=== PATIENT | male | born 1955 | race Caucasian/White ===

== ENCOUNTER 2023-01-05 15:45 | Emergency (ER) | payer MEDICARE ==
[~2023-01-05] VITALS: Ht 177.8 cm; Wt 77.1 kg
[~2023-01-05 15:45] MED LIST: CEPH500 PO; Percocet 5-3251 EACH PO
[2023-01-05] MEDS ORDERED: SULTRIDS PO (18:34)
== END 2023-01-05 18:47 | disposition home or self-care (01) ==
LOC: ER 15:45
DX: S62.614B Displaced fracture of proximal phalanx of right ring finger, initial encounter for open fracture (principal); W27.0XXA Contact with workbench tool, initial encounter; Z79.899 Other long term (current) drug therapy
CPT/HCPCS: 36415; 73130; J0696; J1885

== ENCOUNTER → 2025-01-12 | Outpatient (CLI) | payer MEDICARE ==
[~2025-01-12] MED LIST changes: +SULTRIDS PO
[2025-01-12 22:37] LABS: Free Thyroxine 0.91 ng/dL (0.70-1.60)
[2025-01-12 22:41] LABS: Thyroid Stimulating Hormone 2.62 uIU/mL (0.360-4.800)
== END ==
LOC: LAB SHORT 16:35 → LAB 16:35
PROVIDERS: Family Medicine
DX: I47.9 Paroxysmal tachycardia, unspecified (principal)
CPT/HCPCS: 84439; 84443